=== PATIENT | female | born 1930 | race Caucasian/White ===

== ENCOUNTER → 2017-03-11 | Outpatient (CLI) | payer OTHER | LOC: RAD 01:59 | DX: Z12.31 Encounter for screening mammogram for malignant neoplasm of breast (principal) ==

== ENCOUNTER → 2018-03-12 | Outpatient (CLI) | payer OTHER | LOC: RAD 01:12 | DX: Z12.31 Encounter for screening mammogram for malignant neoplasm of breast (principal) ==

== ENCOUNTER → 2019-03-19 | Outpatient (CLI) | payer OTHER | LOC: RAD 09:59 | DX: Z12.31 Encounter for screening mammogram for malignant neoplasm of breast (principal) ==

== ENCOUNTER → 2020-03-29 | Outpatient (CLI) | payer OTHER | LOC: BC 08:32 | PROVIDERS: ATTEND Family Medicine | DX: Z12.31 Encounter for screening mammogram for malignant neoplasm of breast (principal) ==

== ENCOUNTER 2021-01-28 17:45 | Inpatient (IN) | payer OTHER ==
[~2021-01-28] VITALS: Ht 157.5 cm; Wt 71.7 kg
[2021-01-28 17:49] VITALS: BP 127/85
[2021-01-28 18:59] LABS: ABSOLUTE NEUTROPHILS 14.4 thou/uL (1.4-8.2); BASOPHILS 0.1 % (0.0-2.0); HEMATOCRIT 43.2 % (37.0-47.0); HEMOGLOBIN 14.1 gm/dL (12.0-15.0); LYMPHOCYTES 6.3 % (24.0-44.0); MCH 31.8 pg (26.0-34.0); MCHC 32.6 g/dL (28.0-37.0); MCV 97.5 fL (80.0-100.0); MONOCYTES 6.3 % (1.0-8.0); PLATELET COUNT 263 thou/uL (150-400); POLYS 87.3 % (36.0-66.0); RBC 4.43 mil/uL (4.20-5.00); RDW 14.5 % (10.5-14.5); WBC 16.5 thou/uL (4.0-11.0)
[2021-01-28 19:16] LABS: CALCIUM 9.4 mg/dL (8.5-10.1); CREATININE 1.3 mg/dL (0.6-1.0); POTASSIUM 3.3 mmol/L (3.5-5.1)
[2021-01-28 19:27] LABS: ALBUMIN 3.7 g/dL (3.4-5.0)
[2021-01-28 21:10] LABS: URINE BILIRUBIN NEGATIVE (Negative); URINE BLOOD 3+ (Negative); URINE COLOR YELLOW; URINE GLUCOSE-RANDOM* TRACE (Negative); URINE KETONES NEGATIVE (Negative); URINE PROTEIN (DIPSTICK) 2+ (Negative); URINE SPECIFIC GRAVITY >= 1.030 (1.005-1.035); URINE UROBILINOGEN 0.2 E.U./dl (0.2-1.0)
[2021-01-28 21:11] LABS: URINE CLARITY CLOUDY; URINE LEUKOCYTES-REFLEX 2+ (Negative); URINE NITRITE-REFLEX POSITIVE (Negative)
[2021-01-28 21:24] LABS: BACTERIA-REFLEX >30 Many /HPF (None Seen); CASTS None Seen /LPF (None Seen); CRYSTALS None Seen /LPF (None Seen); SQUAMOUS 0-3 Few /LPF (0-3); URINE RBC 3-10 Few /HPF (NONE SEEN)
[2021-01-28 22:02] VITALS: BP 148/76
[2021-01-28] MEDS ORDERED: CARVEDILOL12.5 MG PO ×2 (22:22)
[2021-01-28] MEDS ORDERED: MELOXICAM7.5 MG PO (22:22)
[2021-01-28] MEDS ORDERED: METFORMIN HCL500 M3 PO (22:23)
[2021-01-28] MEDS ORDERED: COSOPT OCUMETER10 M1 OPHTHALMIC (22:23)
[2021-01-28] MEDS ORDERED: GLIMEPIRIDE1 MG PO (22:23)
[2021-01-28] MEDS ORDERED: VYZULTA5 ML OPHTHALMIC (22:24)
[2021-01-28] MEDS ORDERED: SYNTHROID112 MC1 PO (22:25)
[2021-01-28] MEDS ORDERED: INDAPAMIDE1.25 MG PO (22:25)
[2021-01-28] MEDS ORDERED: SPIRONOLACTONE25 M1 PO (22:25)
[2021-01-28] MEDS ORDERED: LIPITOR40 MG PO (22:26)
[2021-01-29 00:58] VITALS: BP 155/82
[2021-01-29 02:26] LABS: HEMATOCRIT 35.1 % (37.0-47.0); MCH 32.3 pg (26.0-34.0); MCHC 33.7 g/dL (28.0-37.0); MCV 95.9 fL (80.0-100.0); RBC 3.66 mil/uL (4.20-5.00); RDW 14.1 % (10.5-14.5); WBC 14.4 thou/uL (4.0-11.0)
[2021-01-29 02:36] LABS: CHOLESTEROL 147 mg/dL (<200); HDL CHOLESTEROL 60 mg/dL (>40); HEMOGLOBIN 11.8 gm/dL (12.0-15.0); LDL CHOLESTEROL 59 mg/dL (<100); TC:HDL 2.5 Ratio (Not establshd); TRIGLYCERIDE 140 mg/dL (<150); VLDL 28 mg/dL (<40)
[2021-01-29 02:37] LABS: SERUM ASSESSMENT Slight Lipemia
[2021-01-29 02:51] LABS: ALBUMIN 2.9 g/dL (3.4-5.0); CALCIUM 8.7 mg/dL (8.5-10.1); CREATININE 0.8 mg/dL (0.6-1.0); POTASSIUM 3.1 mmol/L (3.5-5.1); TOTAL BILIRUBIN 0.7 mg/dL (0.2-1.0); TOTAL PROTEIN 6.3 g/dL (6.4-8.2)
--- NOTE | 2021-01-29 05:09 | NUR ---
RECEIVED CARE OF THIS PATIENT AT 2242 VIA CART FROM ED ACCOMPANIED BY ED PERSONEL. PATIENT ALERT AND ORIENTED X4. HAS AREA ON L SHOULDER AND L BUTTOCK. NO HAIR ON BACK OF HEAD. IS WEAK IN LOWER EXT. DENIES PAIN. SLEPT OFF AND ON DURING NIGHT.
--- NOTE | 2021-01-29 07:37 | EKG ---
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 [id number] Venancio Hoffman MD, FAC /EPI
[2021-01-29 08:31] VITALS: BP 143/78
[2021-01-29 12:24] VITALS: BP 141/68
[2021-01-29 17:28] VITALS: BP 150/81
[2021-01-29 21:00] VITALS: BP 153/89
[2021-01-30 00:13] VITALS: BP 149/75
--- NOTE | 2021-01-30 03:47 | NUR ---
PT IS A/O X4 AND IS ON BEDREST. PT IS AWAITING PT EVAULATION IN THE AM TO DETERMINE LEVEL OF ACTIVITY. ROOM AIR. VSS. AFEBRILE. IV INFILTRATED AND REPLACED. FALL PRECAUTIONS IN PLACE, CALL LIGHT IS WITHIN REACH.
[2021-01-30 04:06] LABS: GLYCOHEMOGLOBIN (HGB A1C) 7.6 % (4.8-5.6)
[2021-01-30 05:44] VITALS: BP 156/90
[2021-01-30 08:10] VITALS: BP 159/86
--- NOTE | 2021-01-30 09:32 | 2DMMODE ---
[facility] [place] [address] 2 D/M-MODE ECHOCARDIOGRAM Name: TERESA DOYLE Room #: 446-P ADM IN M.R.#: [id number] Admission: 01/28/21 Attend Phys: Lexi Martin MD Discharge: Date of : 34 Report #: [id number] THIS REPORT FOR: cc: Benja Zambrano MD, Rene P. MD Santiago, Patrick MD [facility] ~ APPROVED REPORT Study performed: 01/30/2021 08:53:29 EXAM: Comprehensive 2D, Doppler, and color-flow Echocardiogram Patient Location: Bedside Room #: 446 Status: routine BSA: 1.73 HR: 77 bpm BP: 159/86 mmHg Rhythm: NSR, PVCs Other Information Study Quality: Adequate Indications Elevated troponin, BNP. Hx: Afib, htn, hlp, dm. 2D Dimensions IVSd: 11.54 (7-11mm) LVOT Diam: 19.68 (18-24mm) LVDd: 35.35 mm PWd: 8.80 (7-11mm) LVDs: 25.95 (25-40mm) Left Atrium: 26.76 (27-40mm) Aortic Root: 32.57 mm Volumes Left Atrial Volume (Systole) Single Plane 4CH: 43.12 mL Single Plane 2CH: 44.74 mL LA ESV Index: 27.00 mL/m2 Aortic Valve AoV Peak Rashard.: 1.11 m/s AO Peak Gr.: 4.94 mmHg LVOT Max P.84 mmHg LVOT Max V: 0.98 m/s NATE Vmax: 2.68 cm2 [facility] [address] [place] [address] 2 D/M-MODE ECHOCARDIOGRAM Name: TERESA DOYLE Room #: 446-P ADM IN .R.#: [id number] Admission: 01/28/21 Attend Phys: Lexi Martin MD Discharge: Date of : 34 Report #: [id number] Mitral Valve E/A Ratio: 0.7 MV Decel. Time: 284.15 ms MV E Max Rashard.: 0.67 m/s MV A Rashard.: 0.99 m/s MV PHT: 82.40 ms IVRT: 119.95 ms Pulmonary Valve PV Peak Rashard.: 0.90 m/s PV Peak Gr.: 3.27 mmHg Tricuspid Valve TR Peak Rashard.: 2.31 m/s RAP Estimate: 5.00 mmHg TR Peak Gr.: 21.36 mmHg PA Pressure: 26.00 mmHg Left Ventricle The left ventricle is normal size. There is normal LV segmental wall motion. There is normal left ventricular wall thickness. Left ventricular systolic function is normal. LVEF is 60%. Mild diastolic dysfunction is present (impaired relaxation pattern). Right Ventricle The right ventricle is normal size. The right ventricular systolic function is normal. Atria The left atrium size is normal. The right atrium size is normal. Aortic Valve The aortic valve is normal in structure; mildly calcified. Mild aortic regurgitation. There is no aortic valvular stenosis. Mitral Valve The mitral valve is normal in structure. Mild mitral regurgitation. No evidence of mitral valve stenosis. Tricuspid Valve The tricuspid valve is normal in structure. Trace tricuspid regurgitation. Estimated PAP is 26mmHg. Pulmonic Valve Pulmonic valve is not well visualized. Mild pulmonic regurgitation. [facility] [address] [place] [address] 2 D/M-MODE ECHOCARDIOGRAM Name: TERESA DOYLE Room #: 446-P [facility] IN M.R.#: [id number] Admission: 01/28/21 Attend Phys: Lexi Martin MD Discharge: Date of : 34 Report #: [id number] Great Vessels The aortic root is normal in size. Ascending aorta is not well visualized. IVC is normal in size and collapses >50% with inspiration. Pericardium There is no pericardial effusion. <Conclusion> Normal left ventricle size/wall thickness Ejection fraction 60-65% Grade 1 diastolic dysfunction No segmental wall motion abnormality Normal right ventricle size/function Normal atrial size Mild aortic/mitral valve insufficiency Trace tricuspid valve insufficiency Pulmonary systolic pressure estimated 26 mmHg No pericardial effusion Normal aortic root size. <ELECTRONICALLY SIGNED> By: Venancio Hoffman MD, [facility] 01/30/21930 0 0 Venancio Hoffman MD, FACC /INF
--- NOTE | 2021-01-30 11:28 | NUR ---
VAT CONSULTED FOR PIV PLACEMENT. PT HAD INFILTRATION RIGHT ARM. FELT THAT ML MOST APPROPRIATE FOR PT. ML TO LEFT UPPER BASILIC VEIN, TRIMMED 18CM/0CM EXTERNAL. FLUSHED BRISKLY AND RETURNED BLOOD. RELEASED FOR USE. PT TOLERATED WELL.
--- NOTE | 2021-01-30 12:26 | NUR ---
VAT NOTIFIED THAT PT MIDLINE WON'T FLUSH. TO ROOM, AND ALSO ATTEMPTED TO FLUSH VIA CAP AND DIRECTLY AT HUB. REMOVED DRESSING/CLEANED SITE, PULLED BACK 4CM, NEW DRESSING APPLIED. NOW FLUSHED BRISKLY/POS BLOOD RETURN, X3.
--- NOTE | 2021-01-30 16:03 | NUR ---
PT ADMITTED RELATED TO UTI, DAVID, RHABDON, WEAKNESS, ELEVATED TROP. CM REVIEWED CHART AND SPOKE WITH CARE TEAM. CM MET WITH PT AT BEDSIDE THIS DAY. PT APPEARED TO BE A&O X4. CM ROLE INTRODUCED. PT INDICATED SHE RESIDES AT [facility] IN [place]ART[place]. PT INDICATED SHE HAS A CANE, 4WW, AND A FWW FOR USE AT HOME. 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 PT INDICATED THAT HAD BEEN SKILLED AT [facility] 4 OR 5 WEEKS AGO AND THAT SHE HOPED TO JUST BE ABLE TO RETURN HOME ONCE MEDICALLY STABLE AND NOT GO THE [facility] AT [facility]. SHE INDICATED THAT THE DTR PAUL IS A DIRECTOR AT WHAT USE TO BE [facility] ADN SHE BERNARDO IT WAS CALLED [facility]. SHE SAID SHE WANTED TO USE THEM UPON DC. CM CALLED PT'S DTR AND LEFT VM TO INQUIRE. CM FOLLOWING REGARDING DC PLANNING.
--- NOTE | 2021-01-30 18:46 | NUR ---
PT RECEIVED MIDLINE THIS SHIFT. PT RECEIVED MEDICATIONS ORDERED. PT A&OX4. PT VS STABLE. PT WORKED WITH PT/OT THIS SHIFT. PT IS ABLE TO MAKE NEEDS KNOWN. PT IS X 1 ASSIST WITH ADLS
[2021-01-30 19:48] VITALS: BP 172/70
[2021-01-31 02:54] VITALS: BP 169/70
--- NOTE | 2021-01-31 05:26 | NUR ---
RECEIVED CARE OF THIS PATIENT AT 1900. PATIENT ALERT AND ORIENTED X4. UP TO BSC WITH ASSIST OF ONE. CRISWILLIAMOBDULIO 187, RECEIVED 3 UNITS LISPRO INSULIN. HAS ABRASIONS ON BACK AND L SHOULDER. R ARM EDEMATOUS. IV PATENT WITH FLUIDS INFUSING. DENIES PAIN. SLEPT OFF AND ON DURING NIGHT.
[2021-01-31 11:12] LABS: HEMATOCRIT 34.7 % (37.0-47.0); HEMOGLOBIN 11.3 gm/dL (12.0-15.0); MCHC 32.6 g/dL (28.0-37.0); MCV 98.3 fL (80.0-100.0); RBC 3.53 mil/uL (4.20-5.00); RDW 14.1 % (10.5-14.5); WBC 6.9 thou/uL (4.0-11.0)
[2021-01-31 11:39] LABS: ALBUMIN 2.5 g/dL (3.4-5.0); CALCIUM 8.4 mg/dL (8.5-10.1); POTASSIUM 3.9 mmol/L (3.5-5.1); TOTAL BILIRUBIN 0.4 mg/dL (0.2-1.0); TOTAL PROTEIN 6.1 g/dL (6.4-8.2)
[2021-01-31 12:01] VITALS: BP 130/61
[2021-01-31 15:27] VITALS: BP 140/72
--- NOTE | 2021-01-31 15:33 | NUR ---
CM HEARD BACK FROM PT'S DTR THIS DAY. SHE WORKS FOR [employer]. PT IS TO HAVE A NUCLAR STRESS TEST TOMORROW. PT IS TO BE NPO AFTER MIDNIGHT. CARE TEAM INDICATED THAT PT MAY BE INTERESTEDIN GOING SOMEWHERE SKILLED PRIOR TO RETURNING TO HER [place] APARTMENT. CM TO FOLLOW UP WITH PT. CM FOLLOWING REGARDING DC PLANNING.
[2021-01-31 19:51] VITALS: BP 152/68
--- NOTE | 2021-02-01 04:18 | NUR ---
RECEIVED CARE OF THIS PATIENT AT 1900. PATIENT LAERT AND ORIENTED X4. HAS ABRASIONS ON L SHOULDER AND SHOULDER BLADE. DENIES PAIN. NPO FOR TEST TODAY. ACCUCHECK WAS 110, NO INSULIN COVERAGE NEEDED. UP TO BSC WITH SBA. SLEPT OFF AND ON DURING NIGHT.
[2021-02-01 12:30] VITALS: BP 184/81
--- NOTE | 2021-02-01 12:51 | NUR ---
ASSUMED PT CARE THIS AM. PT IS ALERT & ORIENTED X4. PT HAS IV SITE ON VIDYA MIDLINE SALINE LOCKED. PT IS ACCUCHECK ACHS. PT DID STRESS TEST AM. PT TOLERATED DIET AND MEDICATION WELL. PT IS ON ROOM AIR. PT IS ON TELE MONITOR ON. PT ON THE CHAIR EATING WITH ALARM ON AND CALL LIGHT WITHIN REACH. WILL CONTINUE TO MONITOR PT. FOLLOW POC.
[2021-02-01 14:32] VITALS: BP 184/81
--- NOTE | 2021-02-01 16:35 | NUR ---
PT HAD NUC STRESS TEST AND CARE TEAM INDICATED THAT PT IS MEDICALLY STABLE TO DC HOME THIS DAY. CM MET WITH PT AT BEDSIDE AND SHE INDICATED SHE WANTS TO DC HOME WITH SERVICS THIS SAY. [facility]. THEY RECEIVED THEM. PT'S SON TO TRANSPORT HER BACK TO [facility]. NO OTHER CM INTERVENTION INDICATED. CASE CLOSED.
== END 2021-02-01 16:35 | disposition home health service (06) | DRG 871 ==
LOC: ER 17:45 → EROBS 21:44 → 4S 21:44
PROVIDERS: Emergency Medicine; Nurse Practitioner; Nurse Practitioner Family; ADMIT Internal Medicine; ATTEND Internal Medicine
PROC: 05HC33Z Insertion of Infusion Device into Left Basilic Vein, Percutaneous Approach (ICD-10-PCS; principal; 2021-01-28)
DX: A41.9 Sepsis, unspecified organism (principal); I21.4 Non-ST elevation (NSTEMI) myocardial infarction; N17.0 Acute kidney failure with tubular necrosis; M62.82 Rhabdomyolysis; N39.0 Urinary tract infection, site not specified; E11.9 Type 2 diabetes mellitus without complications; R79.89 Other specified abnormal findings of blood chemistry; E87.6 Hypokalemia; E78.5 Hyperlipidemia, unspecified; Z20.822 Contact with and (suspected) exposure to COVID-19; I10 Essential (primary) hypertension; E03.9 Hypothyroidism, unspecified; I48.0 Paroxysmal atrial fibrillation; R53.81 Other malaise; N39.3 Stress incontinence (female) (male); E55.9 Vitamin D deficiency, unspecified; E53.8 Deficiency of other specified B group vitamins; B96.20 Unspecified Escherichia coli [E. coli] as the cause of diseases classified elsewhere; Z88.8 Allergy status to other drugs, medicaments and biological substances; Z90.49 Acquired absence of other specified parts of digestive tract; Z79.82 Long term (current) use of aspirin; Z79.899 Other long term (current) drug therapy; W18.39XA Other fall on same level, initial encounter; Y93.89 Activity, other specified; Y92.89 Other specified places as the place of occurrence of the external cause; Y99.8 Other external cause status
CPT/HCPCS: 10100; 27000

== ENCOUNTER → 2021-04-19 | Outpatient (CLI) | payer MEDICARE ==
[~2021-04-19] MED LIST: CARVEDILOL12.5 MG PO; COSOPT OCUMETER10 M1 OPHTHALMIC; GLIMEPIRIDE1 MG PO; INDAPAMIDE1.25 MG PO; LIPITOR40 MG PO; MELOXICAM7.5 MG PO; METFORMIN HCL500 M3 PO; SPIRONOLACTONE25 M1 PO; SYNTHROID112 MC1 PO; VYZULTA5 ML OPHTHALMIC
== END ==
LOC: ULTRA 04-17 15:40
PROVIDERS: ATTEND Family Medicine
DX: R79.89 Other specified abnormal findings of blood chemistry (principal); Z90.49 Acquired absence of other specified parts of digestive tract